=== PATIENT | female | born 2000 | race Caucasian/White ===

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

== ENCOUNTER 2021-10-09 23:54 | Emergency (ER) | payer OTHER ==
[~2021-10-09] VITALS: Ht 162.6 cm; Wt 72.6 kg
[2021-10-09 23:55] VITALS: BP 116/78
--- NOTE | 2021-10-10 | NUR ---
to bed ambulatory
--- NOTE | 2021-10-10 00:15 | NUR ---
IN BED 12 WITH C/O RIGHT FLANK PAIN X 1 WEEK
--- NOTE | 2021-10-10 01:00 | NUR ---
IV ESTABLISHED, LABS DRAWN AND SENT TO LAB
[2021-10-10 01:05] LABS: APPEARANCE,URINE CLEAR (CLEAR); BILIRUBIN,URINE NEGATIVE (NEGATIVE); BLOOD, URINE NEGATIVE (NEGATIVE); COLOR,URINE YELLOW (YELLOW); LEUKOCYTE ESTERASE ,URINE TRACE (NEGATIVE); NITRITE, URINE NEGATIVE (NEGATIVE); UGLUCOSE NEGATIVE (NEGATIVE)
[2021-10-10 01:06] LABS: BASOPHILS # (AUTO) 0.1 K/uL (0.00-0.22); BASOPHILS % (AUTO) 0.7 % (0.0-2.0); EOSINOPHILS # (AUTO) 0.2 K/uL (0-0.4); EOSINOPHILS % (AUTO) 2.4 % (0.0-4.0); HEMATOCRIT 35.8 % (36-48); HEMOGLOBIN 11.9 g/dL (12.0-16.0); LYMPHOCYTES # (AUTO) 1.8 K/uL (2.5-16.5); LYMPHOCYTES % (AUTO) 23.1 % (20.5-51.1); MEAN CORPUSCULAR HEMOGLOBIN 26 pg (27-31); MEAN CORPUSCULAR HGB CONC 33 g/dL (33-37); MEAN CORPUSCULAR VOLUME 78.4 fL (80-94); MONOCYTES # (AUTO) 0.4 K/uL (0.8-1.0); MONOCYTES % (AUTO) 5.5 % (1.7-9.3); NEUTROPHILS # (AUTO) 5.3 K/uL (1.8-7.7); NEUTROPHILS % (AUTO) 68.3 % (42.2-75.2); PLATELET COUNT (AUTO) 271 K/uL (140-450); RED BLOOD CELL COUNT(AUTO) 4.57 MIL/uL (4.20-5.40); RED CELL DISTRIBUTION WIDTH 15.7 % (11.6-13.7); WHITE BLOOD COUNT (AUTO) 7.8 K/uL (4.5-11.0)
[2021-10-10] MEDS: NACL 0.9% 1,000 ML IV ONE (01:08)
[2021-10-10] MEDS: MORPHINE SULFATE 4 MG/ML SYR IVP ONE (01:09)
[2021-10-10] MEDS: ONDANSETRON 4 MG/2 ML VIAL IVP ONE (01:10)
[2021-10-10 01:17] LABS: RBC,URINE 0-5 /HPF (0-5)
[2021-10-10 01:24] LABS: ALBUMIN 3.5 g/dL (3.4-5.0); ANION GAP 11.2 (8-16); CARBON DIOXIDE 28.7 mmol/L (21-32); CREATININE 0.8 mg/dL (0.6-1.3); POTASSIUM 3.9 mmol/L (3.5-5.1); TOTAL BILIRUBIN 0.3 mg/dL (0.0-1.0)
--- NOTE | 2021-10-10 03:00 | NUR ---
RESTING COMFORTABLY AT PRESENT
[2021-10-10] MEDS ORDERED: NITR100C7 PO (04:47)
== END 2021-10-10 04:54 | disposition home or self-care (01) ==
LOC: MED 23:54
DX: N39.0 Urinary tract infection, site not specified (principal); R11.0 Nausea; Z79.899 Other long term (current) drug therapy
CPT/HCPCS: 36415; 76705; 80053; 81001; 81025; 83690; 85025; 87086; 96361; 96374; 96375; 99284; J2270; J2405; J7030; Q0092

== ENCOUNTER 2023-11-04 22:46 | Emergency (ER) | payer OTHER ==
[~2023-11-04] VITALS: Ht 162.6 cm; Wt 81.6 kg
[~2023-11-04 22:46] MED LIST changes: +NITR100C7 PO
[2023-11-04 23:12] VITALS: BP 107/66; PULSE 74; RESP 16; TEMP 97.8; O2SAT 100
[2023-11-05] MEDS ORDERED: BENC TP (00:47)
[2023-11-05 00:54] VITALS: BP 107/66; PULSE 74; RESP 16; TEMP 97.8; O2SAT 100
== END 2023-11-05 00:53 | disposition home or self-care (01) ==
LOC: MED 22:46
DX: O26.86 Pruritic urticarial papules and plaques of pregnancy (PUPPP) (principal); Z3A.23 23 weeks gestation of pregnancy; Z79.899 Other long term (current) drug therapy
CPT/HCPCS: 99282